=== PATIENT | male | born 1990 | race Hispanic/Latino ===

== ENCOUNTER 2018-08-03 16:00 | Emergency (ER) | payer OTHER ==
[2018-08-03] MEDS ORDERED: Sodium Chloride 0.9% 1,000 ML IV STA (16:30)
--- NOTE | 2018-08-03 16:48 | ED PDOC ---
HPI: SOB/CHF/COPD Time Seen by Provider: 08/03/18 16:18 Chief Complaint (Nursing): Shortness Of Breath Chief Complaint (Provider): shortness of breath History Per: Patient History/Exam Limitations: no limitations Onset/Duration Of Symptoms: Days (last night), Worse Since (this morning) Current Symptoms Are (Timing): Still Present Associated Symptoms: Chills, Sweating, Chest Pain (w/ cough). denies: Fever Additional Complaint(s): aDve Butler is a 28 year old male, with a past medical history of anxiety, who presents to the emergency department complaining of shortness of breath, dry cough, sore throat, chills, sweats and body aches ongoing since last night. He reports chest pain with coughing and states his arms are numb. Patient states symptoms worsened this morning and felt anxious, he was brought to the ED by his coworkers. He took Tylenol Cold & Flu with no improvement. He denies any fever, chills, nausea, vomiting, headache or other medical complaints. PMD: None Past Medical History Reviewed: Historical Data, Nursing Documentation, Vital Signs Vital Signs: Last Vital Signs Temp 99.2 F 08/03/18 16:10 Pulse 128 H 08/03/18 16:10 Resp 20 08/03/18 16:10 BP 155/84 H 08/03/18 16:10 Pulse Ox 100 08/03/18 16:10 - Medical History PMH: Anxiety - Surgical History Surgical History: Appendectomy - Family History Family History: States: Unknown Family Hx - Social History Alcohol: Occasional Drugs: Cannabis - Home Medications Home Medications: Ambulatory Orders Medication Instructions Recorded RX: Albuterol HFA [Ventolin HFA 90 2 puff IH [id number] #1 inh 08/03/18 mcg/actuation (8 g)] RX: Promethazine/Codeine 5 ml PO Q4 PRN #100 ml 08/03/18 [Phenergan/Codeine Oral Syrup] - Allergies Allergies/Adverse Reactions: Allergies Allergy/AdvReac Type Severity Reaction Status Date / Time No Known Allergies Allergy Verified 08/03/18 16:18 Wells Criteria for PE - Wells Criteria for Pulmonary Embolism Clinical Signs and Symptoms of DVT: No P.E is #1 Diagnosis, or Equally Likely: Yes Heart Rate >100: Yes Immobilization at least 3 days;Surgery previous 4 weeks: No Previous, objectively diagnosed PE or DVT: No Hemoptysis: No Malignancy w/treatment within 6 months, or palliative: No Total Score: 2.5 Review of Systems ROS Statement: Except As Marked, All Systems Reviewed And Found Negative Constitutional: Positive for: Chills, Sweats, Other (body aches). Negative for: Fever ENT: Positive for: Throat Pain Cardiovascular: Positive for: Chest Pain (w/ cough only) Respiratory: Positive for: Cough (dry), Shortness of Breath Gastrointestinal: Negative for: Nausea, Vomiting Neurological: Positive for: Numbness (in arms). Negative for: Headache Psych: Positive for: Anxiety Physical Exam - Reviewed Nursing Documentation Reviewed: Yes Vital Signs Reviewed: Yes - Physical Exam Appears: Positive for: Uncomfortable (restless) Head Exam: Positive for: ATRAUMATIC, NORMAL INSPECTION, NORMOCEPHALIC Skin: Positive for: Normal Color, Warm, Dry Eye Exam: Positive for: Normal appearance, EOMI, PERRL ENT: Positive for: Normal ENT Inspection, Pharynx Is (clear). Negative for: Pharyngeal Erythema, Tonsillar Exudate, Tonsillar Swelling Neck: Positive for: Normal, Painless ROM, Supple Cardiovascular/Chest: Positive for: Tachycardia (regular rhythm). Negative for: Murmur Respiratory: Positive for: Normal Breath Sounds, Other (tachypneic) Gastrointestinal/Abdominal: Positive for: Normal Exam, Soft. Negative for: Tenderness, Guarding, Rebound Back: Positive for: Normal Inspection. Negative for: L CVA Tenderness, R CVA Tenderness Extremity: Positive for: Normal ROM (upper and lower extremities). Negative for: Deformity, Swelling Neurologic/Psych: Positive for: Alert, Oriented. Negative for: Motor/Sensory Deficits - Laboratory Results Result Diagrams: 08/03/18 17:14 08/03/18 17:14 - ECG O2 Sat by Pulse Oximetry: 100 (RA) Pulse Ox Interpretation: Normal - Progress Re-evaluation Time: 21:43 Condition: Re-examined, Improved Medical Decision Making Medical Decision Making: Time: 16:18 Initial Impression: Dyspnea, flu-like symptoms and cough. Differential includes Flu, PNA and bronchitis, less likely PE. Initial Plan: --EKG --Alcohol serum --BMP --Drug screen, urine --Troponin I --CBC w/ differential --D Dimer --Chest one view [RAD] --Ativan 1 mg IV --NaCl 1,000 ml IV 1,000 mls/hr --Toradol 30 mg IVP --Influenza A B --Rapid Strep Group A Antigen --Reevaluation Scribe Attestation: Documented by Vinh Hernandez, acting as a scribe for Jakob Chapman MD Provider Scribe Attestation: All medical record entries made by the Scribe were at my direction and personally dictated by me. I have reviewed the chart and agree that the record accurately reflects my personal performance of the history, physical exam, medical decision making, and the department course for this patient. I have also personally directed, reviewed, and agree with the discharge instructions and disposition. Time: 1748 Plan: -- Urinalysis -- Tylenol 650 mg PO Time: 1813 Plan: -- Labs reviewed and demonstrate an elevated D Dimer. CT Angio ordered for further evaluation. -- Patients reports of slight improvement of symptoms. However, symptoms have not completely resolved. Of note, patient developed a fever in the ER. -- CT Angio Chest PE Protocol TIME: 1950 CT RESULTS FINDINGS: PULMONARY ARTERIES No evidence of central or segmental pulmonary embolism is seen. AORTA There is no evidence for aneurysm or dissection of the thoracic aorta. LUNGS The lungs appear clear. PLEURAL SPACES No pneumothorax evident. No pleural effusions. HEART Normal heart size. No significant pericardial effusion. LYMPH NODES No lymphadenopathy is evident. BONES No focal osseous abnormality or acute fracture. UPPER ABDOMEN Images of the upper abdomen are unremarkable. IMPRESSION: Unremarkable pulmonary embolism protocol CTA of the chest. Electronically signed on Aug 03, 2018 7:51:56 PM EST by: Humberto Moore M.D., Certified by [employer], Diagnostic Radiology Scribe Attestation: Documented by Sarahy Cavazos, acting as a scribe for Jakob Chapman MD. Provider Scribe Attestation: All medical record entries made by the Scribe were at my direction and personally dictated by me. I have reviewed the chart and agree that the record accurately reflects my personal performance of the history, physical exam, medical decision making, and the department course for this patient. I have also personally directed, reviewed, and agree with the discharge instructions and disposition. Disposition - Clinical Impression Clinical Impression: Chest pain, Flu-like symptoms, Anxiety - Patient ED Disposition Is Patient to be Admitted: No Doctor Will See Patient In The: Office Counseled Patient/Family Regarding: Studies Performed, Diagnosis, Need For Followup - Disposition Referrals: [facility] [Outside] Disposition: Routine/Home Disposition Time: 21:47 Condition: IMPROVED Additional Instructions: DAVE BUTLER, thank you for letting us take care of you today. Your provider was Jakob Chapman MD and you were treated for DIFFICULTY BREATHING. The emergency medical care you received today was directed at your acute symptoms. If you were prescribed any medication, please fill it and take as directed. It may take several days for your symptoms to resolve. Return to the Emergency Department if your symptoms worsen, do not improve, or if you have any other problems. Please contact your doctor or call one of the physicians/clinics you have been referred to that are listed on the Patient Visit Information form that is included in your discharge packet. Bring any paperwork you were given at discharge with you along with any medications you are taking to your follow up visit. Our treatment cannot replace ongoing medical care by a primary care provider outside of the emergency department. Thank you for allowing the [facility] team to be part of your care today. If you had an X-Ray or CT scan: A Radiologist will review the ED reading if any change in treatment is needed we will contact you. If you had a blood, urine, or wound culture: It will take several days for the results, if any change in treatment is needed we will contact you. If you had an STI test: It will take 48 hours for the results. Please call after 1 week if you have not heard back. Prescriptions: RX: Albuterol HFA [Ventolin HFA 90 mcg/actuation (8 g)] 2 puff IH [id number] #1 inh RX: Promethazine/Codeine [Phenergan/Codeine Oral Syrup] 5 ml PO Q4 PRN #100 ml PRN Reason: Cough Instructions: Chest Pain, Anxiety, Adult (DC), Viral Syndrome (DC) Forms: [employer] (German) MARY BETH Risk Score for UA/NSTEMI - MARY BETH Risk Score Age > 64: NO 3 or more CAD Risk Factors: NO Known CAD (Stenosis greater than 50%): NO Aspirin use in past 7 days: NO Severe Angina: NO EKG ST changes greater than 0.5mm: NO Positive Cardiac Marker: NO MARY BETH Score: 0 % risk at 14 days of: all cause mortality, new or recurrent ND, or severe recurrent ischemia requiring urgen revascularization: 5%
[2018-08-03 17:19] LABS: BASO % 0.3 % (0.0-2.0); EOS % 0.2 % (0.0-4.0); HEMOGLOBIN 15.7 g/dL (12.0-18.0); LYMPH # 0.4 K/uL (1.0-4.3); LYMPH % 6.3 % (20.0-40.0); MEAN CELL VOLUME 92.1 fl (80.0-94.0); MEAN CORPUSCULAR HEMOGLOBIN 32.7 pg (27.0-31.0); MEAN CORPUSCULAR HGB CONC 35.5 g/dL (33.0-37.0); MEAN PLATELET VOLUME 7.9 fl (7.2-11.7); MONO # 0.6 K/uL (0.0-0.8); MONO % 9.4 % (0.0-10.0); NEUT # 5.3 K/uL (1.8-7.0); NEUT % 83.8 % (50.0-75.0); PLATELET COUNT 189 K/uL (130-400); RBC 4.81 Mil/uL (4.40-5.90); RED CELL DISTRIBUTION WIDTH 12.4 % (11.5-14.5); WHITE BLOOD COUNT 6.4 K/uL (4.8-10.8)
[2018-08-03 17:38] LABS: BLOOD UREA NITROGEN 11 mg/dl (9-20); CALCIUM 9.4 mg/dL (8.4-10.2); GFR NON-AFRICAN AMERICAN > 60
[2018-08-03 17:58] LABS: BARBITURATES, UR NEGATIVE (NEGATIVE); BENZODIAZEPINES, UR NEGATIVE (NEGATIVE); OPIATES, UR NEGATIVE (NEGATIVE); PHENCYCLIDINE, UR NEGATIVE (NEGATIVE)
[2018-08-03 18:28] LABS: URINE BILIRUBIN NEGATIVE (NEGATIVE); URINE BLOOD NEGATIVE (NEGATIVE); URINE CLARITY SLIGHTY-CLOUDY (Clear); URINE COLOR YELLOW (YELLOW); URINE GLUCOSE (UA) NEG (NEGATIVE); URINE LEUKOCYTE ESTERASE NEG Leu/uL (Negative); URINE PROTEIN NEGATIVE (NEGATIVE); URINE UROBILINOGEN 0.2-1.0 mg/dL (0.2-1.0)
[2018-08-03] MEDS ORDERED: Sodium Chloride 0.9% 50 ML IV ONE (19:08)
[2018-08-03] MEDS ORDERED: Iodixanol 320 MG/ML 100 ML BOTTLE IV ONE (19:08)
[2018-08-03 19:15] LABS: LYMPHOCYTE 5 % (20-50); MONOCYTE 7 % (0-10); NEUTROPHIL 88 % (42-75); TOTAL CELLS COUNTED 100
[2018-08-03 19:16] LABS: PLATELET ESTIMATE NORMAL (NORMAL)
--- NOTE | 2018-08-03 19:26 | RAD ---
Date of service: 08/03/2018 HISTORY: dyspnea COMPARISON: None available. FINDINGS: LUNGS: No active pulmonary disease. PLEURA: No significant pleural effusion identified, no pneumothorax apparent. CARDIOVASCULAR: No aortic atherosclerotic calcification present. Normal cardiac size. No pulmonary vascular congestion. OSSEOUS STRUCTURES: No significant abnormalities. VISUALIZED UPPER ABDOMEN: Normal. OTHER FINDINGS: None. IMPRESSION: No acute cardiopulmonary disease appreciated.
[2018-08-04 05:34] VITALS: BP 115/78; PULSE 100; RESP 18; TEMP 98.9; O2SAT 100
--- NOTE | 2018-08-04 11:58 | CARD ---
APPROVED REPORT Date of service: 08/03/2018 EKG Measurement Heart [id number] <Conclusion> Sinus tachycardia Otherwise normal ECG
--- NOTE | 2018-08-04 12:16 | CT ---
Date of service: 08/03/2018 PROCEDURE: CT Chest with contrast (Pulmonary Angiogram) HISTORY: chest pain COMPARISON: None available. TECHNIQUE: Axial computed tomography images were obtained of the chest in the pulmonary arterial phase of enhancement. Coronal and sagittal reformatted images were created and reviewed. Intravenous contrast dose: 78 cc Visipaque [id number]. Mean Hounsfield value in the main pulmonary artery: 181.84 Radiation dose: Total exam DLP = 308.36 mGy-cm. This CT exam was performed using one or more of the following dose reduction techniques: Automated exposure control, adjustment of the mA and/or kV according to patient size, and/or use of iterative reconstruction technique. FINDINGS: PULMONARY ARTERIES: Unremarkable. No pulmonary embolism. AORTA: No acute findings. No thoracic aortic aneurysm. No atherosclerotic calcification or mural plaque present. LUNGS: Unremarkable. No nodule, mass or pulmonary consolidation. PLEURAL SPACES: Unremarkable. No effusion or pneumothorax. HEART: Unremarkable. No cardiomegaly. No significant pericardial effusion. LYMPH NODES: No lymphadenopathy. BONES, CHEST WALL: Unremarkable. No fracture or destructive lesion OTHER FINDINGS: Unremarkable. IMPRESSION: Unremarkable CT pulmonary angiogram. No pulmonary embolus. Limitations of the current examination: Qualitative quantitative assessment of opacification of the pulmonary arterial system precludes meaningful assessment beyond the segmental branches. Accordingly pulmonary emboli at and beyond the segmental level could be missed. Concordant results (preliminary interpretation) provided by [employer]. Procedure Completed: 19:26. Preliminary Report: Dictated and Authenticated: 19:51. Final Interpretation: 12:12.
== END 2018-08-03 21:55 | disposition home or self-care (01) ==
LOC: H.ER 16:00
DX: R07.89 Other chest pain (principal); J11.1 Influenza due to unidentified influenza virus with other respiratory manifestations; F41.9 Anxiety disorder, unspecified
CPT/HCPCS: 71045; 71275; 80048; 80320; 80324; 80345; 80346; 80349; 80353; 80358; 80361; 81003; 83992; 84484; 85025; 85378; 87070; 87430; 87804; 93005; 96374; 99284; J1885; J2060; J7030; Q9967